=== PATIENT | male | born 2000 | race Caucasian/White ===

== ENCOUNTER 2025-05-08 00:19 | Emergency (ER) | payer SELFPAY ==
[~2025-05-08] VITALS: Ht 172.7 cm; Wt 123.0 kg
[2025-05-08] MEDS: MAGNESIUM/ALUMINUM HYDROXIDE/SIMETHICONE 30ML UDC PO ONE (02:06)
[2025-05-08] MEDS ORDERED: MAG-55 MT (02:19)
[2025-05-08 02:24] VITALS: BP 148/80; PULSE 70; RESP 18; O2SAT 100
== END 2025-05-08 02:25 | disposition home or self-care (01) ==
LOC: ER 00:19
DX: F41.9 Anxiety disorder, unspecified (principal); K21.9 Gastro-esophageal reflux disease without esophagitis
CPT/HCPCS: 71045; 93005; 99283